=== PATIENT | male | born 1960 | race Caucasian/White ===

== ENCOUNTER → 2016-11-02 | Day surgery (SDC) | payer OTHER ==
[~2016-11-02] MED LIST: AMLODIPINE BESYL5 MG PO; FLONASE ALLERG9.9 ML; LIPITOR20 MG PO; OMEPRAZOLE20 M2 PO; UROXATRAL10 MG PO
--- NOTE | ~2016-11-02 | OR ---
Unit #: [id number] #: [id number] Patient: RAMOS AGARWAL [id number] [address] [place], [place] [address] [id number] MR#: [id number] NAME: RAMOS AGARWAL ROOM: Date of Procedure: 11/02/2016 Admission Date: 11/02/2016 Surgeon: Ham Mcdowell M.D. : 1960 Attending Physician: Ham Mcdowell M.D. OPERATIVE REPORT PREOPERATIVE DIAGNOSIS Colorectal cancer screening in an average-risk patient. PROCEDURE PERFORMED Colonoscopy up to cecum with polypectomy. POSTOPERATIVE DIAGNOSES 1. Single sessile polyp in the distal sigmoid colon. The latter was removed using snare polypectomy. The polyp was about 6 mm in size and was retrieved and sent for histology. 2. Rest of the examination up to cecum was normal. The quality of the prep was excellent. No diverticula or hemorrhoids were seen. RECOMMENDATIONS Follow up the results of polyp histology. Consider repeat colonoscopy in 5 years. SEDATION USED MAC. DESCRIPTION OF PROCEDURE Following detailed explanation of potential risks and complications of a colonoscopy, namely perforation, bleeding, and complication related to sedation, the patient was brought to GI lab and laid in the left lateral decubitus position. A digital rectal examination was performed, which was normal. Lubricated tip of the Olympus video colonoscope was inserted through the anus and advanced under direct vision. The scope was advanced past rectosigmoid into descending colon. No diverticula were seen in this area. The scope tip was then navigated all the way up to cecum with visualization of the ileocecal valve and the appendiceal orifice. Preparation was excellent with good visualization and photodocumentation was obtained. Last several inches of the terminal ileum were also visualized after intubation of the ileocecal valve and appeared normal. Successive segments of the colonic mucosa were examined upon withdrawal and appeared unremarkable except for a single sessile polyp in the mid to distal sigmoid colon. This was about 6 mm in size. It was removed using snare polypectomy. The polyp was retrieved and sent for histology. Excellent hemostasis was achieved and photodocumentation was obtained. No additional polyps were noted. The patient did not have any diverticulosis nor any hemorrhoids. The scope was then withdrawn and the patient returned to the recovery area. He tolerated the procedure without any postprocedure complications. Unit #: [id number] #: [id number] Patient: RAMOS AGARWAL Dictated by... Mason Pinedo/ashlee TD: 11/02/2016 12:33 JOB #: [id number] CC: Bola Joseph M.D. OPERATIVE REPORT Page 1 of 1 X Ham Mcdowell MD X PROCEDURE OPERATIVE NOTE
== END | disposition home or self-care (01) ==
LOC: COPS 07:30
DX: Z12.11 Encounter for screening for malignant neoplasm of colon (principal); K63.5 Polyp of colon; M19.90 Unspecified osteoarthritis, unspecified site; K21.9 Gastro-esophageal reflux disease without esophagitis; I10 Essential (primary) hypertension; E78.5 Hyperlipidemia, unspecified; N40.1 Benign prostatic hyperplasia with lower urinary tract symptoms; R35.0 Frequency of micturition; Z87.442 Personal history of urinary calculi; Z88.0 Allergy status to penicillin; Z79.51 Long term (current) use of inhaled steroids; Z79.899 Other long term (current) drug therapy; Z98.890 Other specified postprocedural states
CPT/HCPCS: 88305; J2250